=== PATIENT | male | born 1950 | race Caucasian/White ===

== ENCOUNTER → 2017-01-22 | Outpatient (CLI) | payer BC ==
[~2017-01-22] MED LIST: ACETAMINOPHEN PO; ADVAIR DISKU1 250/50 INH; ALBUTEROL17 GM INH; AMIODARONE PO; ASPIRIN ENTERI325 M1 PO; CARVEDILOL25 MG PO; COUMADIN PO; DILTIAZEM ER360 MG PO; FUROSEMIDE40 MG PO; LANOXIN PO; LASIX80 MG PO; LIPITOR PO; LISINOPRIL-HCTZ1 T14 PO; LISINOPRIL10 MG PO; LOPRESSOR PO; MAGNESIUM250 M1 PO; MAXZIDE 75-501 EACH; POTASSIUM99 M1 PO; SINGULAIR PO; ZITHROMAX500 MG PO; ZYLOPRIM100 MG DOB
--- NOTE | ~2017-01-22 | CT55 ---
[facility] A Service of [facility] RADIOLOGY TEXT RESULTS PATIENT: DALY SAUL LOCATION: [facility] : 54 UNIT #: [id number] AGE: [address]: Andrew Beasley MD SEX: M ORDER DR: [id number] [id number] [facility]. [place], [place] [address] [id number] O MR#: [id number] Acc #: [id number] NAME: DALY SAUL : 1950 SEX: M STUDY DATE/TIME: 01/22/2017 14:18 UNIT: [facility] ROOM: STUDY DESCRIPTION: CT Chest W Con Attending Physician: Andrew Beasley M.D. Referring Physician: Andrew Beasley M.D. Ordering Physician: Andrew Beasley M.D. Primary Care Physician: Emmett Butts M.D. MEDICAL IMAGING REPORT This report is preliminary unless electronic signature is present EXAM CT scan chest with contrast. HISTORY Dyspnea. Shortness of air for six weeks. Swelling on side of throat. Abnormal chest x-ray in doctor office. Difficulty talking. COMPARISON Chest CT 10/01/2010. This CT exam was performed with one or more of the following radiation dose reduction techniques: automatic exposure control, adjustment of mA and/or kV according to patient size, and iterative reconstruction. FINDINGS Axial 5 mm images were obtained through the chest with IV contrast. The patient was given 100 mL of Isovue 370. There are sternotomy wires present. The thyroid gland is normal. The aorta is normal in size. Patient has aortic valve replacement. There is no mediastinal or hilar adenopathy. Bones are otherwise unremarkable. There is a small to moderate layering right pleural effusion. No new infiltrates. There is only minimal basilar atelectasis on the right. IMPRESSION 1. Small to moderate layering right pleural effusion with very minimal right base atelectasis. 2. Otherwise there is no active disease. Dictated by... Isael Servin M.D. [facility] A Service of [facility] RADIOLOGY TEXT RESULTS PATIENT: DALY SAUL LOCATION: [facility] #: [id number] : 54 UNIT #: [id number] AGE: [address]: Andrew Beasley MD SEX: M ORDER DR: THIS IS AN ELECTRONICALLY VERIFIED REPORT Isael Servin M.D. at 01/23/2017 11:42 AM Hank TD: 01/23/2017 10:54 JOB #: [id number] MEDICAL IMAGING REPORT Page 1 of 1 COPY
[2017-01-22 17:16] LABS: POC - GFR >60.0 mL/min (>60)
== END | disposition home or self-care (01) ==
LOC: CCAT 13:54
PROVIDERS: Internal Medicine
DX: J90 Pleural effusion, not elsewhere classified (principal); R93.8 Abnormal findings on diagnostic imaging of other specified body structures; R06.00 Dyspnea, unspecified
CPT/HCPCS: 71260; 82565; Q9967

== ENCOUNTER → 2017-01-22 | Outpatient (CLI) | payer BC ==
--- NOTE | ~2017-01-22 | CT114 ---
[facility] A Service of [facility] RADIOLOGY TEXT RESULTS PATIENT: DALY SAUL LOCATION: [facility] : 54 UNIT #: [id number] AGE: [address]: Manny Glass MD SEX: M ORDER DR: [id number] [facility] [address] [facility]. [place], [place] [address] [id number] O MR#: [id number] Acc #: [id number] NAME: DALY SAUL : 1950 SEX: M STUDY DATE/TIME: 01/22/2017 15:26 UNIT: [facility] ROOM: STUDY DESCRIPTION: CT Soft Tissue Neck W Cont Attending Physician: Manny Glass M.D. Referring Physician: Manny Glass M.D. Ordering Physician: Manny Glass M.D. Primary Care Physician: Emmett Butts M.D. MEDICAL IMAGING REPORT This report is preliminary unless electronic signature is present EXAM CT scan of the neck with contrast HISTORY Shortness of air, abnormal chest x-ray, swelling inside throat and tonsils, biopsy of tonsils yesterday, swelling for a week, difficulty talking. TECHNIQUE The patient was given 100 mL of Isovue 370 and axial 3 mm images were obtained through the neck. The patient also had a chest CT the same day. This CT exam was performed with one or more of the following radiation dose reduction techniques: automatic exposure control, adjustment of mA and/or kV according to patient size, and iterative reconstruction. FINDINGS There is a large globular mass associated with the left side of the oropharynx. This is about 3.4 x 2.0 x 5.0 cm and it is in the region of the tonsils. The parotid glands and submandibular glands are normal. There are some slightly enlarged lymph nodes in the left side of the neck with the largest one located posterior to the internal jugular vein and medial to the sternocleidomastoid muscle. That is 19 mm x 20 mm x 17 mm. There are several other smaller nodes extending up and down from this region throughout the neck and their shear number is pathologic as well as the size of the larger ones. The mass appears to be mostly exophytic with only a small amount of mucosal thickening. The epiglottis appears normal. There is a small right effusion visible. IMPRESSION Large left oropharyngeal mass that appears to be in the tonsillar region. It seems to be mostly exophytic and it is up to 2.0 x 3.4 x 5.0 cm. There [facility]. [facility] A Service of [facility] RADIOLOGY TEXT RESULTS PATIENT: DALY SAUL LOCATION: [facility] : 54 UNIT #: [id number] AGE: [address]: Manny Glass MD SEX: M ORDER DR: are numerous abnormal lymph nodes throughout the left side of the neck suggesting metastatic disease from malignancy. STAT * RESULT Dictated by... Isael Servin M.D. THIS IS AN ELECTRONICALLY VERIFIED REPORT Isael Servin M.D. at 01/27/2017 6:07 AM [place] TD: 01/26/2017 17:01 JOB #: [id number] MEDICAL IMAGING REPORT Page 1 of 1 COPY
== END | disposition home or self-care (01) ==
LOC: CCAT 14:06
DX: R22.1 Localized swelling, mass and lump, neck (principal)
CPT/HCPCS: 70491; Q9967

== ENCOUNTER → 2017-03-05 | Outpatient (CLI) | payer OTHER ==
--- NOTE | ~2017-03-05 | XA51 ---
[facility] A Service of [facility] RADIOLOGY TEXT RESULTS PATIENT: DALY SAUL LOCATION: [facility] : 54 UNIT #: [id number] AGE: [address]: Ricardo Carey MD SEX: M ORDER DR: [id number] [id number] [facility]. [place], [place] [address] [id number] O MR#: [id number] Acc #: [id number] NAME: DALY SAUL : 1950 SEX: M STUDY DATE/TIME: 03/05/2017 8:01 UNIT: [facility] ROOM: STUDY DESCRIPTION: XA BX Bone Marrow Attending Physician: Ricardo Carey M.D. Referring Physician: Ricardo Carey M.D. Ordering Physician: Ricardo Carey M.D. Primary Care Physician: Emmett Butts M.D. MEDICAL IMAGING REPORT This report is preliminary unless electronic signature is present EXAM Bone marrow aspiration and biopsy with fluoroscopic guidance HISTORY Lymphoma. TECHNIQUE The procedure was explained to the patient including risks, benefits and complications. Informed consent was obtained and a formal time-out procedure was utilized. Sterile technique was utilized. Sedation was provided by anesthesia. Please see the anesthesia report for full details. One overhead spot film was obtained with a fluoroscopy time of 0.3 minutes and a dose of 24 mGy. Using sterile technique and following local anesthesia with 1% Xylocaine, a bone marrow biopsy trocar was placed into the right iliac bone under fluoroscopic guidance. Bone marrow aspiration was performed followed by core biopsy. The patient tolerated the procedure well. Specimens were placed into appropriate solutions and colored test tubes. Final pathology results are pending. IMPRESSION Technically successful bone marrow aspiration and biopsy. Dictated by... Jesus Crowell M.D. THIS IS AN ELECTRONICALLY VERIFIED REPORT Jesus Crowell M.D. at 03/05/2017 4:33 PM ALFONSO/gera TD: 03/05/2017 13:29 STS. [facility] A Service of [facility] RADIOLOGY TEXT RESULTS PATIENT: DALY SAUL [facility] [id number] : 54 UNIT #: [id number] AGE: [address]: Ricardo Carey MD SEX: M ORDER DR: JOB #: [id number] MEDICAL IMAGING REPORT Page 1 of 1 COPY
[2017-03-05 07:35] LABS: INR 1.6; PARTIAL THROMBOPLASTIN TIME 31.2 SECONDS (23.5-31.3); PROTHROMBIN TIME (PATIENT) 17.9 SECONDS (10.0-11.7)
[2017-03-05 07:52] LABS: HEMATOCRIT 43.6 % (38.0-50.0); MEAN CELL VOLUME 95.5 FL (83-96); MEAN CORPUSCULAR HEMOGLOBIN 30.6 PG (28-34); MEAN CORPUSCULAR HGB CONC 32.1 g/dL (30-36); MEAN PLATELET VOLUME 8.3 FL (6.5-11.5); RED BLOOD COUNT 4.56 X10e (3.90-5.60); RED CELL DISTRIBUTION WIDTH 15.6 % (11.0-15.5); WHITE BLOOD COUNT 7.2 X10e3 (4.0-10.5)
== END | disposition home or self-care (01) ==
LOC: CIVR 03-04 08:00
PROVIDERS: Internal Medicine Hematology & Oncology; Radiology Diagnostic Radiology
PROC: 079T3ZX Drainage of Bone Marrow, Percutaneous Approach, Diagnostic (ICD-10-PCS; 2017-03-05)
PROC: 07DR3ZX Extraction of Iliac Bone Marrow, Percutaneous Approach, Diagnostic (ICD-10-PCS; principal; 2017-03-05 09:10)
DX: C82.49 Follicular lymphoma grade IIIb, extranodal and solid organ sites (principal); R59.0 Localized enlarged lymph nodes; I10 Essential (primary) hypertension; J44.9 Chronic obstructive pulmonary disease, unspecified; G47.30 Sleep apnea, unspecified; Z79.899 Other long term (current) drug therapy; Z79.82 Long term (current) use of aspirin; Z79.01 Long term (current) use of anticoagulants; Z95.2 Presence of prosthetic heart valve; Z96.653 Presence of artificial knee joint, bilateral; Z87.898 Personal history of other specified conditions
CPT/HCPCS: 38221; G0364; 36415; 77002; 85027; 85610; 85730; 88305; 88311; 88313; J0330